=== PATIENT | female | born 1945 | race Caucasian/White ===

== ENCOUNTER 2020-11-10 10:08 | Outpatient (CLI) | payer MEDICARE, OTHER | END 2020-11-10 10:09 | disposition home or self-care (01) | LOC: CSHMAMMO 10:08 | PROVIDERS: ATTEND Family Medicine | DX: Z78.0 Asymptomatic menopausal state (principal); M85.80 Other specified disorders of bone density and structure, unspecified site | CPT/HCPCS: 77080 ==

== ENCOUNTER 2020-12-10 22:20 | Inpatient (IN) | payer MEDICARE, OTHER ==
[2020-12-10] MEDS ORDERED: Ventolin HFA Inhaler 60 PUFF INHALER ONE (23:14)
[2020-12-10 23:29] LABS: #Eosinphils 0.1 10x3/uL (0.0-0.5); #Monocytes 1.1 10x3/uL (0.0-1.1); #Neutrophils 8.5 10x3/uL (1.5-8.4); %Basophils 0.3 % (0.0-2.0); %Monocytes 8.9 % (0.0-10.0); %Neutrophils 71.5 % (40.0-75.0); Hemoglobin 11.2 g/dL (12.0-15.5); Mean Corpuscular HGB CONC 32.1 g/dL (32.0-36.0); Mean Corpuscular Hemoglobin 30.4 pg (27.0-33.0); Mean Corpuscular Volume 94.8 fl (81.6-98.3); Mean Platelet Volume 8.8 fl (7.4-10.4); Platelet Count 331 10x3/uL (150-450); RBC Distribution Width 15.9 % (11.5-14.5); Red Blood Cell (RBC) Count 3.68 10x6/uL (3.90-5.03); White Blood Cell (WBC) Count 11.9 10x3/uL (3.5-10.5)
[2020-12-10 23:45] LABS: ALT (SGPT) 13 U/L (8-55); AST (SGOT) 19 U/L (5-34); Albumin 3.6 g/dL (3.4-4.8); Alkaline Phosphatase 127 U/L (40-110); Anion Gap 14 mmol/L (10-20); BUN (Urea Nitrogen) 15 mg/dL (9.8-20.1); Bilirubin, Total 0.1 mg/dL (0.2-1.2); Calc. Creatinine Clearance 0 mL/min (70-130); Calcium 9.6 mg/dL (7.8-10.44); Carbon Dioxide 26 mmol/L (23-31); Chloride 106 mmol/L (98-107); Globulin 2.9 g/dL (2.4-3.5); Glucose 147 mg/dL (83-110); Potassium 4.3 mmol/L (3.5-5.1); Protein, Total 6.5 g/dL (5.8-8.1); Sodium 142 mmol/L (136-145)
[2020-12-11] MEDS ORDERED: Ventolin HFA Inhaler 60 PUFF INHALER INH PRN (03:46)
[2020-12-11 05:29] LABS: #Eosinphils 0.1 10x3/uL (0.0-0.5); #Monocytes 1.1 10x3/uL (0.0-1.1); #Neutrophils 6.4 10x3/uL (1.5-8.4); %Basophils 0.4 % (0.0-2.0); %Eosinophils 0.9 % (0.0-6.0); %Lymphocytes 22.1 % (18.0-47.0); %Monocytes 11.4 % (0.0-10.0); %Neutrophils 64.8 % (40.0-75.0); Mean Corpuscular Hemoglobin 30.6 pg (27.0-33.0); Mean Corpuscular Volume 95.8 fl (81.6-98.3); Mean Platelet Volume 9.1 fl (7.4-10.4); Platelet Count 309 10x3/uL (150-450); RBC Distribution Width 16.1 % (11.5-14.5); Red Blood Cell (RBC) Count 3.59 10x6/uL (3.90-5.03); White Blood Cell (WBC) Count 9.8 10x3/uL (3.5-10.5)
[2020-12-11 05:41] LABS: Anion Gap 13 mmol/L (10-20); BUN (Urea Nitrogen) 14 mg/dL (9.8-20.1); Calc. Creatinine Clearance 0 mL/min (70-130); Calcium 9.6 mg/dL (7.8-10.44); Carbon Dioxide 25 mmol/L (23-31); Chloride 108 mmol/L (98-107); Glucose 113 mg/dL (83-110); Magnesium 2.2 mg/dL (1.6-2.6); Potassium 4.1 mmol/L (3.5-5.1); Sodium 142 mmol/L (136-145)
[2020-12-11 05:46] LABS: Troponin I Less than 0.010 ng/mL (< 0.028)
[2020-12-11] MEDS: Levothyroxine Sodium 75 MCG TAB PO SCH (06:03)
[2020-12-11 06:19] LABS: SARS-CoV-2 NAA Rapid Test Not Detected (NotDetected)
[2020-12-11] MEDS ORDERED: Mometasone/Formoterol 60 PUFF AER INH SCH (06:30)
[2020-12-11] MEDS: Albuterol Sulfate 2.5 mg/3 ml Neb NEB SCH ×3 (07:35→19:05)
[2020-12-11] MEDS: Ipratropium Bromide 2.5 ml Neb NEB SCH ×3 (07:40→19:05)
[2020-12-11] MEDS ORDERED: Roflumilast [Daliresp] 500 MCG Tablet PO SCH (09:00)
[2020-12-11] MEDS: Cholecalciferol 1,000 UNITS (25 MCG) TAB PO SCH (10:25)
[2020-12-11] MEDS: Flecainide 50 MG TAB PO SCH ×2 (10:26→21:37)
[2020-12-11] MEDS: guaiFENesin ER 600 MG TAB PO SCH (10:27)
[2020-12-11] MEDS: Furosemide 20 MG TAB PO SCH (10:27)
[2020-12-11] MEDS: Losartan Potassium 50 MG TAB PO SCH ×2 (10:28→21:37)
[2020-12-11] MEDS: Magnesium Oxide 400 MG TAB PO SCH (10:30)
[2020-12-11] MEDS: sulfaSALAzine 500 MG TAB PO SCH ×2 (10:31→21:34)
[2020-12-11] MEDS: Metoprolol Tartrate 25 MG TAB PO SCH ×2 (10:33→21:37)
[2020-12-11] MEDS ORDERED: Metoprolol Tartrate 25 MG TAB ONE (10:34)
[2020-12-11 13:04] VITALS: BMI 31.9
[2020-12-11] MEDS: Mometasone 100 MCG/Formoterol 5 MCG 120 PUFF INHALER INH SCH (19:20)
[2020-12-11] MEDS ORDERED: diphenhydrAMINE 25 MG CAP PO SCH (21:00)
[2020-12-11] MEDS ORDERED: Rivaroxaban 10 MG TAB PO SCH (21:00)
[2020-12-11] MEDS: Atorvastatin Calcium 20 MG TAB PO SCH (21:35)
[2020-12-11] MEDS: Montelukast Sodium 10 mg Tablet PO SCH (21:37)
[2020-12-12] MEDS: Losartan Potassium 50 MG TAB PO SCH (05:05)
[2020-12-12 05:19] LABS: #Basophils 0.1 10x3/uL (0.0-0.2); #Eosinphils 0.2 10x3/uL (0.0-0.5); #Neutrophils 6.2 10x3/uL (1.5-8.4); %Basophils 0.5 % (0.0-2.0); %Eosinophils 2.2 % (0.0-6.0); %Lymphocytes 18.8 % (18.0-47.0); %Monocytes 10.6 % (0.0-10.0); %Neutrophils 67.7 % (40.0-75.0); Hemoglobin 10.9 g/dL (12.0-15.5); Mean Corpuscular HGB CONC 32.4 g/dL (32.0-36.0); Mean Corpuscular Hemoglobin 30.5 pg (27.0-33.0); Mean Corpuscular Volume 94.1 fl (81.6-98.3); Mean Platelet Volume 9.3 fl (7.4-10.4); Platelet Count 332 10x3/uL (150-450); RBC Distribution Width 16.1 % (11.5-14.5); Red Blood Cell (RBC) Count 3.57 10x6/uL (3.90-5.03); White Blood Cell (WBC) Count 9.2 10x3/uL (3.5-10.5)
[2020-12-12] MEDS: Levothyroxine Sodium 75 MCG TAB PO SCH (05:25)
[2020-12-12 05:28] LABS: Anion Gap 12 mmol/L (10-20); BUN (Urea Nitrogen) 14 mg/dL (9.8-20.1); Calc. Creatinine Clearance 74 mL/min (70-130); Calcium 9.2 mg/dL (7.8-10.44); Carbon Dioxide 26 mmol/L (23-31); Chloride 105 mmol/L (98-107); Glucose 95 mg/dL (83-110); Magnesium 2.1 mg/dL (1.6-2.6); Potassium 3.7 mmol/L (3.5-5.1); Sodium 139 mmol/L (136-145)
[2020-12-12] MEDS: Mometasone 100 MCG/Formoterol 5 MCG 120 PUFF INHALER INH SCH ×2 (07:10→19:00)
[2020-12-12] MEDS ORDERED: Rivaroxaban 10 MG TAB PO SCH (09:00)
[2020-12-12] MEDS: Cholecalciferol 1,000 UNITS (25 MCG) TAB PO SCH (09:27)
[2020-12-12] MEDS: Losartan 25 MG TAB PO SCH (09:27)
[2020-12-12] MEDS: guaiFENesin ER 600 MG TAB PO SCH (09:27)
[2020-12-12] MEDS: Flecainide 50 MG TAB PO SCH ×2 (09:27→22:23)
[2020-12-12] MEDS: Magnesium Oxide 400 MG TAB PO SCH (09:27)
[2020-12-12] MEDS: Metoprolol Tartrate 25 MG TAB PO SCH ×2 (09:28→22:23)
[2020-12-12] MEDS: Furosemide 20 MG TAB PO SCH ×2 (09:29→09:30)
[2020-12-12] MEDS: sulfaSALAzine 500 MG TAB PO SCH ×2 (09:50→22:24)
[2020-12-12] MEDS ORDERED: Potassium Chloride 20 MEQ TAB PO SCH (10:45)
[2020-12-12] MEDS: Atorvastatin Calcium 20 MG TAB PO SCH (22:23)
[2020-12-12] MEDS: Montelukast Sodium 10 mg Tablet PO SCH (22:23)
[2020-12-12] MEDS: diphenhydrAMINE 25 MG CAP PO SCH (22:23)
[2020-12-12] MEDS: Rivaroxaban 10 MG TAB PO SCH (22:24)
[2020-12-13 05:37] LABS: #Basophils 0.1 10x3/uL (0.0-0.2); #Eosinphils 0.2 10x3/uL (0.0-0.5); #Neutrophils 6.1 10x3/uL (1.5-8.4); %Basophils 0.5 % (0.0-2.0); %Eosinophils 2.3 % (0.0-6.0); %Lymphocytes 21.6 % (18.0-47.0); %Monocytes 10.6 % (0.0-10.0); %Neutrophils 64.7 % (40.0-75.0); Hemoglobin 11.1 g/dL (12.0-15.5); Mean Corpuscular HGB CONC 31.8 g/dL (32.0-36.0); Mean Corpuscular Hemoglobin 29.9 pg (27.0-33.0); Mean Corpuscular Volume 94.1 fl (81.6-98.3); Mean Platelet Volume 8.8 fl (7.4-10.4); Platelet Count 320 10x3/uL (150-450); RBC Distribution Width 16.2 % (11.5-14.5); Red Blood Cell (RBC) Count 3.71 10x6/uL (3.90-5.03); White Blood Cell (WBC) Count 9.4 10x3/uL (3.5-10.5)
[2020-12-13 05:54] LABS: Anion Gap 11 mmol/L (10-20); BUN (Urea Nitrogen) 15 mg/dL (9.8-20.1); Calc. Creatinine Clearance 70 mL/min (70-130); Calcium 9.2 mg/dL (7.8-10.44); Carbon Dioxide 26 mmol/L (23-31); Chloride 105 mmol/L (98-107); Glucose 93 mg/dL (83-110); Magnesium 2.1 mg/dL (1.6-2.6); Sodium 138 mmol/L (136-145)
[2020-12-13] MEDS: Levothyroxine Sodium 75 MCG TAB PO SCH (06:26)
[2020-12-13] MEDS: Mometasone 100 MCG/Formoterol 5 MCG 120 PUFF INHALER INH SCH (07:04)
[2020-12-13] MEDS: Cholecalciferol 1,000 UNITS (25 MCG) TAB PO SCH (08:21)
[2020-12-13] MEDS: sulfaSALAzine 500 MG TAB PO SCH ×2 (08:21→20:16)
[2020-12-13] MEDS: Magnesium Oxide 400 MG TAB PO SCH (08:21)
[2020-12-13] MEDS: Losartan 25 MG TAB PO SCH (08:21)
[2020-12-13] MEDS: Flecainide 50 MG TAB PO SCH ×2 (08:21→20:15)
[2020-12-13] MEDS: Metoprolol Tartrate 25 MG TAB PO SCH ×2 (08:21→20:15)
[2020-12-13] MEDS: guaiFENesin ER 600 MG TAB PO SCH (08:21)
[2020-12-13] MEDS: Furosemide 20 MG TAB PO SCH (08:21)
[2020-12-13] MEDS: Atorvastatin Calcium 20 MG TAB PO SCH (20:15)
[2020-12-13] MEDS: diphenhydrAMINE 25 MG CAP PO SCH (20:15)
[2020-12-13] MEDS: Montelukast Sodium 10 mg Tablet PO SCH (20:15)
[2020-12-13] MEDS: Rivaroxaban 10 MG TAB PO SCH (20:16)
[2020-12-14] MEDS: Mometasone 100 MCG/Formoterol 5 MCG 120 PUFF INHALER INH SCH ×2 (01:58→07:27)
[2020-12-14] MEDS: Levothyroxine Sodium 75 MCG TAB PO SCH (06:14)
[2020-12-14 07:03] VITALS: BP 116/70; TEMP 98
[2020-12-14] MEDS: Flecainide 50 MG TAB PO SCH (08:12)
[2020-12-14] MEDS: Furosemide 20 MG TAB PO SCH (08:12)
[2020-12-14] MEDS: sulfaSALAzine 500 MG TAB PO SCH (08:12)
[2020-12-14] MEDS: Metoprolol Tartrate 25 MG TAB PO SCH (08:13)
[2020-12-14] MEDS: Cholecalciferol 1,000 UNITS (25 MCG) TAB PO SCH (08:13)
[2020-12-14] MEDS: Magnesium Oxide 400 MG TAB PO SCH (08:13)
[2020-12-14] MEDS: guaiFENesin ER 600 MG TAB PO SCH (08:13)
[2020-12-14] MEDS ORDERED: Losartan 25 MG TAB PO SCH (09:00)
== END 2020-12-14 11:24 | disposition home or self-care (01) | DRG 309 ==
LOC: CSHERS 22:20 → CSHERHOLD 12-11 03:41 → UNDOADMOB 12-11 04:09 → INTOOBSV 12-11 04:09 → CSHTELE 12-11 12:33 → CSHERHOLD 12-11 12:33 → CSHTELE 12-11 12:33 → OBSVTOIN 12-13 08:00
PROVIDERS: ADMIT Family Medicine; ATTEND Internal Medicine
DX: I48.0 Paroxysmal atrial fibrillation (principal); I50.32 Chronic diastolic (congestive) heart failure; J45.909 Unspecified asthma, uncomplicated; Z20.822 Contact with and (suspected) exposure to COVID-19; E78.2 Mixed hyperlipidemia; L40.50 Arthropathic psoriasis, unspecified; I49.5 Sick sinus syndrome; I11.0 Hypertensive heart disease with heart failure; E03.9 Hypothyroidism, unspecified; D50.9 Iron deficiency anemia, unspecified; Z85.41 Personal history of malignant neoplasm of cervix uteri; Z79.01 Long term (current) use of anticoagulants; Z79.890 Hormone replacement therapy; Z79.899 Other long term (current) drug therapy; Z90.89 Acquired absence of other organs; Z95.0 Presence of cardiac pacemaker; Z90.49 Acquired absence of other specified parts of digestive tract; Z88.5 Allergy status to narcotic agent; Z88.0 Allergy status to penicillin; Z88.8 Allergy status to other drugs, medicaments and biological substances; Z90.710 Acquired absence of both cervix and uterus; Z82.3 Family history of stroke; Z80.1 Family history of malignant neoplasm of trachea, bronchus and lung; Z87.891 Personal history of nicotine dependence
CPT/HCPCS: 36415; 71045; 80048; 80053; 82728; 83540; 83735; 83880; 84443; 84484; 85025; 85379; 93005; 93306; 94640; 94664; 94760; G0378; J7611; J7620; Q0163; U0002

== ENCOUNTER 2021-05-19 07:47 | Day surgery (SDC) | payer MEDICARE, OTHER ==
[2021-05-19 08:14] VITALS: BMI 39.9
[2021-05-19] MEDS ORDERED: Acetaminophen 500 MG TAB ONE (08:46)
[2021-05-19] MEDS ORDERED: diphenhydrAMINE 25 MG CAP ONE (08:47)
[2021-05-19 15:22] LABS: #Basophils 0.1 10x3/uL (0.0-0.2); #Eosinphils 0.5 10x3/uL (0.0-0.5); #Monocytes 1.2 10x3/uL (0.0-1.1); #Neutrophils 5.5 10x3/uL (1.5-8.4); %Basophils 0.8 % (0.0-2.0); %Eosinophils 5.1 % (0.0-6.0); %Lymphocytes 23.7 % (18.0-47.0); %Monocytes 12.3 % (0.0-10.0); %Neutrophils 57.8 % (40.0-75.0); Hemoglobin 9.6 g/dL (12.0-15.5); Mean Corpuscular HGB CONC 30.7 g/dL (32.0-36.0); Mean Corpuscular Hemoglobin 26.4 pg (27.0-33.0); Mean Corpuscular Volume 86.2 fl (81.6-98.3); Mean Platelet Volume 8.8 fl (7.4-10.4); Platelet Count 366 10x3/uL (150-450); RBC Distribution Width 16.5 % (11.5-14.5); Red Blood Cell (RBC) Count 3.63 10x6/uL (3.90-5.03); White Blood Cell (WBC) Count 9.4 10x3/uL (3.5-10.5)
== END 2021-05-19 15:05 | disposition home or self-care (01) ==
LOC: CSHSDC/OP 07:47
PROVIDERS: ATTEND Internal Medicine Hematology & Oncology
DX: D64.9 Anemia, unspecified (principal); D69.59 Other secondary thrombocytopenia
CPT/HCPCS: 36430; 85025; 86850; 86900; 86901; 86920; P9016; 36415

== ENCOUNTER 2021-05-30 10:26 | Outpatient (CLI) | payer MEDICARE, OTHER ==
[2021-05-30 11:40] LABS: Hemoglobin 10.5 g/dL (12.0-15.5); Mean Corpuscular HGB CONC 31.3 g/dL (32.0-36.0); Mean Corpuscular Hemoglobin 27.9 pg (27.0-33.0); Mean Corpuscular Volume 89.1 fl (81.6-98.3); Mean Platelet Volume 9.6 fl (7.4-10.4); Platelet Count 374 10x3/uL (150-450); RBC Distribution Width 21.7 % (11.5-14.5); Red Blood Cell (RBC) Count 3.77 10x6/uL (3.90-5.03)
[2021-05-30 11:57] LABS: Anion Gap 14 mmol/L (10-20); BUN (Urea Nitrogen) 11 mg/dL (9.8-20.1); Calc. Creatinine Clearance 0 mL/min (70-130); Calcium 8.8 mg/dL (7.8-10.44); Carbon Dioxide 24 mmol/L (23-31); Chloride 108 mmol/L (98-107); Glucose 107 mg/dL (83-110); Potassium 3.7 mmol/L (3.5-5.1); Sodium 142 mmol/L (136-145)
[2021-05-30 21:58] LABS: SARS-CoV-2 PCR by NAA Not Detected (NotDetected)
== END 2021-05-30 10:27 | disposition home or self-care (01) ==
LOC: CSHLAB 10:26
PROVIDERS: ATTEND Internal Medicine Cardiovascular Disease
DX: Z01.812 Encounter for preprocedural laboratory examination (principal); Z20.822 Contact with and (suspected) exposure to COVID-19
CPT/HCPCS: 80048; 85027; U0003; U0005

== ENCOUNTER 2021-06-01 08:33 | Day surgery (SDC) | payer MEDICARE, OTHER ==
[2021-05-30 16:00] VITALS: BMI 37.0
[2021-06-01] MEDS ORDERED: Lidocaine 1% MPF 2 ML VIAL ONE (09:21)
[2021-06-01] MEDS ORDERED: Isosulfan Blue 50 MG/5 ML VIAL ONE (10:05)
[2021-06-01] MEDS ORDERED: Clindamycin/D5W 600 mg/50 ml Premix Bag ONE (10:05)
[2021-06-01] MEDS ORDERED: Lidocaine 1% PF 5 ML VIAL ONE (10:05)
[2021-06-01] MEDS ORDERED: EPINEPHrine 1 MG/ML AMP ONE (10:05)
[2021-06-01] MEDS ORDERED: Bupivacaine PF 0.5% 30 ML VIAL ONE (10:05)
[2021-06-01] MEDS ORDERED: traMADol HCl 50 MG TAB PO PRN (11:38)
[2021-06-01] MEDS ORDERED: Albuterol Sulfate 2.5 mg/3 ml Neb ONE (11:52)
== END 2021-06-01 12:45 | disposition home or self-care (01) ==
LOC: CSHSDC 08:33
PROVIDERS: ATTEND Surgery
PROC: 0HBU0ZZ Excision of Left Breast, Open Approach (ICD-10-PCS; principal; 2021-06-01)
PROC: 07B63ZX Excision of Left Axillary Lymphatic, Percutaneous Approach, Diagnostic (ICD-10-PCS; 2021-06-01)
DX: C50.212 Malignant neoplasm of upper-inner quadrant of left female breast (principal); C77.3 Secondary and unspecified malignant neoplasm of axilla and upper limb lymph nodes; I48.0 Paroxysmal atrial fibrillation; I10 Essential (primary) hypertension; J45.909 Unspecified asthma, uncomplicated; E78.00 Pure hypercholesterolemia, unspecified; K21.9 Gastro-esophageal reflux disease without esophagitis; Z17.0 Estrogen receptor positive status [ER+]; Z88.0 Allergy status to penicillin; Z88.5 Allergy status to narcotic agent; Z91.018 Allergy to other foods; Z79.01 Long term (current) use of anticoagulants; Z79.51 Long term (current) use of inhaled steroids; Z79.899 Other long term (current) drug therapy; Z95.0 Presence of cardiac pacemaker; Z85.41 Personal history of malignant neoplasm of cervix uteri; Z90.710 Acquired absence of both cervix and uterus
CPT/HCPCS: 19301; 38525; 38900; 76098; 78195; A9541; Q9968; 88307; 88342; J0171; J3490; J7611; S0020

== ENCOUNTER 2022-02-15 07:50 | Emergency (ER) | payer MEDICARE, OTHER ==
[2022-02-15 08:45] LABS: #Eosinphils 0.1 10x3/uL (0.0-0.5); #Monocytes 0.9 10x3/uL (0.0-1.1); #Neutrophils 7.5 10x3/uL (1.5-8.4); %Basophils 0.4 % (0.0-2.0); %Eosinophils 1.4 % (0.0-6.0); %Lymphocytes 14.1 % (18.0-47.0); %Monocytes 8.6 % (0.0-10.0); Hemoglobin 9.8 g/dL (12.0-15.5); Mean Corpuscular Hemoglobin 31.3 pg (27.0-33.0); Mean Corpuscular Volume 94.9 fl (81.6-98.3); Mean Platelet Volume 8.8 fl (7.4-10.4); Platelet Count 385 10x3/uL (150-450); RBC Distribution Width 16.6 % (11.5-14.5); Red Blood Cell (RBC) Count 3.13 10x6/uL (3.90-5.03); White Blood Cell (WBC) Count 10.1 10x3/uL (3.5-10.5)
[2022-02-15] MEDS ORDERED: Aspirin Chewable 81 MG TAB ONE (08:45)
[2022-02-15 09:02] LABS: ALT (SGPT) 9 U/L (8-55); AST (SGOT) 22 U/L (5-34); Albumin 3.4 g/dL (3.4-4.8); Alkaline Phosphatase 113 U/L (40-110); Anion Gap 14 mmol/L (10-20); BUN (Urea Nitrogen) 23 mg/dL (9.8-20.1); Bilirubin, Total 0.3 mg/dL (0.2-1.2); CK (CPK) 39 U/L (29-168); Calc. Creatinine Clearance 0 mL/min (70-130); Carbon Dioxide 23 mmol/L (23-31); Chloride 107 mmol/L (98-107); Estimated GFR 63; Glucose 96 mg/dL (83-110); Protein, Total 6.4 g/dL (5.8-8.1); Sodium 140 mmol/L (136-145)
[2022-02-15 10:51] LABS: Bilirubin Neg (Negative); Blood, Urine 50 (Negative); Clarity Cloudy (Clear); Glucose, Urine (Dipstick) Normal (Negative); Ketone, Urine Negative (Negative); Leukocyte 500 (Negative); Nitrite Negative (Negative); Protein, Urine (Dipstick) 30 mg/dl (Neg-Trace); Urobilinogen Normal mg/dL (Less than 2)
[2022-02-15 11:16] LABS: Bacteria/HPF 3+ HPF (None Seen); WBC/HPF Greater than 50 HPF (0-3)
[2022-02-15 11:17] LABS: Renal Epithelial 0-3 HPF (None Seen)
[2022-02-15 11:18] LABS: White Blood Cell Cast 0-3 LPF (None Seen)
== END 2022-02-15 11:45 | disposition home or self-care (01) ==
LOC: CSHERS 07:50
DX: N30.00 Acute cystitis without hematuria (principal); I10 Essential (primary) hypertension; E78.5 Hyperlipidemia, unspecified; Z79.899 Other long term (current) drug therapy; Z79.51 Long term (current) use of inhaled steroids
CPT/HCPCS: 71045; 80053; 81003; 81015; 82550; 84443; 84484; 85025; 93005

== ENCOUNTER 2022-02-24 04:12 | Inpatient (IN) | payer MEDICARE, OTHER ==
[2022-02-24] MEDS ORDERED: Lorazepam 2 MG/ML VIAL ONE (04:40)
[2022-02-24 04:46] LABS: Actual Bicarbonate (HCO3v) 26 mEq/L (22-28); Base Excess 1.2 mEq/L (-2.0 to +3.0); Calcium, Ionized (venous) 1.11 mmol/L (1.16-1.32); Chloride (VBG) 104 mmol/L (98-106); Potassium (VBG) 3.53 mmol/L (3.70-5.30); Puncture Site Other Site; Sodium 137.3 mmol/L (133-146); pH (venous) 7.44 (7.32-7.43)
[2022-02-24 04:51] LABS: #Eosinphils 0.2 10x3/uL (0.0-0.5); #Monocytes 0.8 10x3/uL (0.0-1.1); #Neutrophils 6.6 10x3/uL (1.5-8.4); %Basophils 0.4 % (0.0-2.0); %Eosinophils 1.9 % (0.0-6.0); %Lymphocytes 19.6 % (18.0-47.0); %Monocytes 8.4 % (0.0-10.0); %Neutrophils 69.3 % (40.0-75.0); Hemoglobin 8.3 g/dL (12.0-15.5); Mean Corpuscular HGB CONC 32.8 g/dL (32.0-36.0); Mean Corpuscular Hemoglobin 29.9 pg (27.0-33.0); Mean Platelet Volume 8.8 fl (7.4-10.4); Platelet Count 381 10x3/uL (150-450); RBC Distribution Width 17.1 % (11.5-14.5); Red Blood Cell (RBC) Count 2.78 10x6/uL (3.90-5.03); White Blood Cell (WBC) Count 9.6 10x3/uL (3.5-10.5)
[2022-02-24 05:00] LABS: ALT (SGPT) 11 U/L (8-55); AST (SGOT) 17 U/L (5-34); Albumin 3.5 g/dL (3.4-4.8); Alkaline Phosphatase 113 U/L (40-110); Anion Gap 15 mmol/L (10-20); BUN (Urea Nitrogen) 17 mg/dL (9.8-20.1); Bilirubin, Total 0.3 mg/dL (0.2-1.2); Calc. Creatinine Clearance 0 mL/min (70-130); Calcium 8.7 mg/dL (7.8-10.44); Carbon Dioxide 24 mmol/L (23-31); Chloride 106 mmol/L (98-107); Estimated GFR 54; Globulin 2.3 g/dL (2.4-3.5); Glucose 103 mg/dL (83-110); Potassium 3.8 mmol/L (3.5-5.1); Protein, Total 5.8 g/dL (5.8-8.1); Sodium 141 mmol/L (136-145)
[2022-02-24 05:20] LABS: SARS-CoV-2 NAA Rapid Test Not Detected (NotDetected)
[2022-02-24] MEDS ORDERED: Furosemide 40 MG/4 ML VIAL ONE (05:35)
[2022-02-24] MEDS ORDERED: Nitroglycerin 0.4 MG TAB (25 Tab Bottle) SL PRN (06:44)
[2022-02-24] MEDS ORDERED: Ventolin HFA Inhaler 60 PUFF INHALER INH PRN (07:09)
[2022-02-24 07:12] LABS: Magnesium 2.2 mg/dL (1.6-2.6)
[2022-02-24 08:24] LABS: Troponin I 0.011 ng/mL (< 0.028)
[2022-02-24 08:35] LABS: Bilirubin Neg (Negative); Blood, Urine Negative (Negative); Clarity Clear (Clear); Glucose, Urine (Dipstick) Normal (Negative); Ketone, Urine Negative (Negative); Leukocyte Negative (Negative); Nitrite Negative (Negative); Protein, Urine (Dipstick) Negative (Neg-Trace); Urobilinogen Normal mg/dL (Less than 2)
[2022-02-24 08:37] LABS: Urine Culture Reflex No No
[2022-02-24 09:00] LABS: RBC/HPF None Seen HPF (0-3)
[2022-02-24] MEDS ORDERED: Losartan Potassium 50 MG TAB PO SCH (09:00)
[2022-02-24] MEDS ORDERED: Rivaroxaban 10 MG TAB PO SCH (09:00)
[2022-02-24] MEDS ORDERED: Magnesium Oxide 400 MG TAB PO SCH (09:00)
[2022-02-24] MEDS ORDERED: ROFLUMILAST 500 MCG PO SCH (09:00)
[2022-02-24 09:01] VITALS: BMI 36.6
[2022-02-24] MEDS ORDERED: Metoprolol Tartrate 25 MG TAB ONE (10:04)
[2022-02-24] MEDS ORDERED: Losartan 25 MG TAB ONE (10:08)
[2022-02-24 11:46] LABS: Troponin I Less than 0.010 ng/mL (< 0.028)
[2022-02-24] MEDS: GUAIFENESIN SF SOLN 200 MG/10 ML UDCUP PO SCH (12:53)
[2022-02-24] MEDS: Flecainide 50 MG TAB PO SCH ×2 (12:53→21:16)
[2022-02-24] MEDS: Metoprolol Tartrate 25 MG TAB PO SCH ×2 (12:54→21:18)
[2022-02-24] MEDS: Ipratropium Bromide 2.5 ml Neb NEB SCH ×2 (13:00→18:55)
[2022-02-24] MEDS: Mometasone/Formoterol 60 PUFF AER INH SCH (19:00)
[2022-02-24] MEDS: Rivaroxaban 10 MG TAB PO SCH (21:17)
[2022-02-24] MEDS: Atorvastatin Calcium 20 MG TAB PO SCH (21:17)
[2022-02-24] MEDS: Montelukast Sodium 10 mg Tablet PO SCH (21:17)
[2022-02-24] MEDS: Letrozole 2.5 MG TAB PO SCH (21:18)
[2022-02-25] MEDS: Ipratropium Bromide 2.5 ml Neb NEB SCH ×4 (00:40→19:09)
[2022-02-25 04:59] LABS: #Eosinphils 0.1 10x3/uL (0.0-0.5); #Monocytes 0.8 10x3/uL (0.0-1.1); #Neutrophils 9.1 10x3/uL (1.5-8.4); %Basophils 0.4 % (0.0-2.0); %Eosinophils 1.3 % (0.0-6.0); %Lymphocytes 9.6 % (18.0-47.0); %Monocytes 7.2 % (0.0-10.0); %Neutrophils 81.1 % (40.0-75.0); Hemoglobin 8.2 g/dL (12.0-15.5); Mean Corpuscular HGB CONC 31.7 g/dL (32.0-36.0); Mean Corpuscular Hemoglobin 29.6 pg (27.0-33.0); Mean Corpuscular Volume 93.5 fl (81.6-98.3); Mean Platelet Volume 8.8 fl (7.4-10.4); Platelet Count 384 10x3/uL (150-450); RBC Distribution Width 16.7 % (11.5-14.5); Red Blood Cell (RBC) Count 2.77 10x6/uL (3.90-5.03); White Blood Cell (WBC) Count 11.2 10x3/uL (3.5-10.5)
[2022-02-25 05:09] LABS: ALT (SGPT) 9 U/L (8-55); AST (SGOT) 17 U/L (5-34); Albumin 3.3 g/dL (3.4-4.8); Alkaline Phosphatase 101 U/L (40-110); Anion Gap 16 mmol/L (10-20); BUN (Urea Nitrogen) 16 mg/dL (9.8-20.1); Bilirubin, Direct 0.2 mg/dL (0.1-0.3); Bilirubin, Total 0.4 mg/dL (0.2-1.2); Calc. Creatinine Clearance 61 mL/min (70-130); Calcium 8.7 mg/dL (7.8-10.44); Carbon Dioxide 21 mmol/L (23-31); Cardiac Risk 2.8 (Less than 4.5); Chloride 106 mmol/L (98-107); Cholesterol 128 mg/dl (< 200 Desired); Estimated GFR 55; Glucose 123 mg/dL (83-110); HDL Cholesterol 46 mg/dL (>60 Neg Risk); LDL Cholesterol, Calculated 66 mg/dL; Magnesium 2.2 mg/dL (1.6-2.6); Potassium 3.8 mmol/L (3.5-5.1); Protein, Total 5.8 g/dL (5.8-8.1); Sodium 139 mmol/L (136-145); Triglycerides 78 mg/dL (Less than 150)
[2022-02-25] MEDS: Levothyroxine Sodium 75 MCG TAB PO SCH (05:10)
[2022-02-25] MEDS: Mometasone/Formoterol 60 PUFF AER INH SCH ×2 (07:15→19:12)
[2022-02-25] MEDS: GUAIFENESIN SF SOLN 200 MG/10 ML UDCUP PO SCH (08:01)
[2022-02-25] MEDS: Metoprolol Tartrate 25 MG TAB PO SCH ×2 (08:01→20:39)
[2022-02-25] MEDS: Flecainide 50 MG TAB PO SCH ×2 (08:01→20:38)
[2022-02-25] MEDS ORDERED: Furosemide 20 MG/2 ML VIAL SLOW IVP SCH (19:00)
[2022-02-25] MEDS: Atorvastatin Calcium 20 MG TAB PO SCH (20:37)
[2022-02-25] MEDS: Rivaroxaban 10 MG TAB PO SCH (20:39)
[2022-02-25] MEDS: Montelukast Sodium 10 mg Tablet PO SCH (20:41)
[2022-02-25] MEDS: Letrozole 2.5 MG TAB PO SCH (20:41)
[2022-02-26] MEDS: Ipratropium Bromide 2.5 ml Neb NEB SCH ×4 (01:47→19:10)
[2022-02-26 05:03] LABS: Anion Gap 14 mmol/L (10-20); BUN (Urea Nitrogen) 18 mg/dL (9.8-20.1); Calc. Creatinine Clearance 70 mL/min (70-130); Carbon Dioxide 24 mmol/L (23-31); Chloride 105 mmol/L (98-107); Estimated GFR 64; Glucose 101 mg/dL (83-110); Potassium 3.6 mmol/L (3.5-5.1); Sodium 139 mmol/L (136-145)
[2022-02-26 05:15] LABS: #Eosinphils 0.2 10x3/uL (0.0-0.5); #Monocytes 0.9 10x3/uL (0.0-1.1); #Neutrophils 7.6 10x3/uL (1.5-8.4); %Basophils 0.3 % (0.0-2.0); %Eosinophils 1.9 % (0.0-6.0); %Lymphocytes 12.7 % (18.0-47.0); %Monocytes 9.3 % (0.0-10.0); %Neutrophils 75.4 % (40.0-75.0); Hemoglobin 9.4 g/dL (12.0-15.5); Mean Corpuscular HGB CONC 31.9 g/dL (32.0-36.0); Mean Corpuscular Hemoglobin 28.7 pg (27.0-33.0); Mean Corpuscular Volume 89.9 fl (81.6-98.3); Platelet Count 383 10x3/uL (150-450); RBC Distribution Width 16.9 % (11.5-14.5); Red Blood Cell (RBC) Count 3.28 10x6/uL (3.90-5.03); White Blood Cell (WBC) Count 10.1 10x3/uL (3.5-10.5)
[2022-02-26] MEDS: Levothyroxine Sodium 75 MCG TAB PO SCH (05:50)
[2022-02-26] MEDS: Mometasone/Formoterol 60 PUFF AER INH SCH ×2 (07:10→19:10)
[2022-02-26] MEDS ORDERED: Potassium Chloride 20 MEQ TAB PO SCH (09:30)
[2022-02-26] MEDS: Flecainide 50 MG TAB PO SCH ×2 (10:08→21:32)
[2022-02-26] MEDS: Metoprolol Tartrate 25 MG TAB PO SCH ×2 (10:08→21:32)
[2022-02-26] MEDS: GUAIFENESIN SF SOLN 200 MG/10 ML UDCUP PO SCH (10:08)
[2022-02-26] MEDS: Furosemide 40 MG TAB PO SCH (10:09)
[2022-02-26] MEDS: MAGNESIUM 200 MG PO SCH (11:00)
[2022-02-26] MEDS: Atorvastatin Calcium 20 MG TAB PO SCH (21:32)
[2022-02-26] MEDS: Letrozole 2.5 MG TAB PO SCH (21:32)
[2022-02-26] MEDS: Rivaroxaban 10 MG TAB PO SCH (21:32)
[2022-02-26] MEDS: Montelukast Sodium 10 mg Tablet PO SCH (21:33)
[2022-02-26 22:58] LABS: Bilirubin Neg (Negative); Blood, Urine Negative (Negative); Clarity Clear (Clear); Glucose, Urine (Dipstick) Normal (Negative); Ketone, Urine Negative (Negative); Leukocyte 500 (Negative); Nitrite Negative (Negative); Protein, Urine (Dipstick) Negative (Neg-Trace); Urobilinogen Normal mg/dL (Less than 2)
[2022-02-26 23:01] LABS: Urine Culture Reflex No No
[2022-02-26 23:08] LABS: RBC/HPF 0-3 HPF (0-3)
[2022-02-26 23:09] LABS: Bacteria/HPF Rare-Few HPF (None Seen); Squamous Epithelial 0-3 HPF (0-3)
[2022-02-27] MEDS: Ipratropium Bromide 2.5 ml Neb NEB SCH ×4 (01:10→20:30)
[2022-02-27] MEDS: Levothyroxine Sodium 75 MCG TAB PO SCH (05:21)
[2022-02-27 05:32] LABS: #Basophils 0.1 10x3/uL (0.0-0.2); #Eosinphils 0.3 10x3/uL (0.0-0.5); #Neutrophils 7.4 10x3/uL (1.5-8.4); %Basophils 0.6 % (0.0-2.0); %Eosinophils 2.6 % (0.0-6.0); %Lymphocytes 10.2 % (18.0-47.0); %Monocytes 10.6 % (0.0-10.0); %Neutrophils 75.8 % (40.0-75.0); Hemoglobin 9.5 g/dL (12.0-15.5); Mean Corpuscular HGB CONC 32.1 g/dL (32.0-36.0); Mean Corpuscular Hemoglobin 28.5 pg (27.0-33.0); Mean Corpuscular Volume 88.9 fl (81.6-98.3); Mean Platelet Volume 8.9 fl (7.4-10.4); Platelet Count 383 10x3/uL (150-450); Red Blood Cell (RBC) Count 3.33 10x6/uL (3.90-5.03); White Blood Cell (WBC) Count 9.8 10x3/uL (3.5-10.5)
[2022-02-27 05:37] LABS: Anion Gap 17 mmol/L (10-20); BUN (Urea Nitrogen) 19 mg/dL (9.8-20.1); Calc. Creatinine Clearance 62 mL/min (70-130); Calcium 8.7 mg/dL (7.8-10.44); Carbon Dioxide 22 mmol/L (23-31); Chloride 105 mmol/L (98-107); Estimated GFR 55; Glucose 94 mg/dL (83-110); Magnesium 1.9 mg/dL (1.6-2.6); Potassium 3.6 mmol/L (3.5-5.1); Sodium 140 mmol/L (136-145)
[2022-02-27] MEDS: Mometasone/Formoterol 60 PUFF AER INH SCH ×2 (06:50→20:30)
[2022-02-27] MEDS ORDERED: GUAIFENESIN SF SOLN 200 MG/10 ML UDCUP ONE (09:16)
[2022-02-27] MEDS ORDERED: Meropenem 1 GM in Sodium Chloride 0.9% 100 ML IVPB SCH (09:30)
[2022-02-27] MEDS: GUAIFENESIN SF SOLN 200 MG/10 ML UDCUP PO SCH (09:55)
[2022-02-27] MEDS: Flecainide 50 MG TAB PO SCH ×2 (09:56→21:11)
[2022-02-27] MEDS: Furosemide 40 MG TAB PO SCH (09:56)
[2022-02-27] MEDS: Metoprolol Tartrate 25 MG TAB PO SCH ×2 (09:56→21:11)
[2022-02-27] MEDS ORDERED: Potassium Chloride 10 MEQ in Premix Bag 1 BAG IVPB SCH (11:45)
[2022-02-27 12:58] LABS: Iron 26 ug/dL (50-170); Iron Binding Capacity, Total 348 mcg/dL (265-497)
[2022-02-27] MEDS ORDERED: Meropenem 1 GM VIAL ONE (17:12)
[2022-02-27] MEDS: Meropenem 1 GM in Sodium Chloride 0.9% 100 ML IVPB SCH (17:46)
[2022-02-27] MEDS: Montelukast Sodium 10 mg Tablet PO SCH (21:11)
[2022-02-27] MEDS: Letrozole 2.5 MG TAB PO SCH (21:11)
[2022-02-27] MEDS: Rivaroxaban 10 MG TAB PO SCH (21:11)
[2022-02-27] MEDS: Atorvastatin Calcium 20 MG TAB PO SCH (21:11)
[2022-02-28] MEDS: Ipratropium Bromide 2.5 ml Neb NEB SCH ×4 (01:44→20:00)
[2022-02-28] MEDS: Meropenem 1 GM in Sodium Chloride 0.9% 100 ML IVPB SCH ×4 (05:40→17:38)
[2022-02-28] MEDS: Levothyroxine Sodium 75 MCG TAB PO SCH (05:40)
[2022-02-28 06:39] LABS: Anion Gap 12 mmol/L (10-20); BUN (Urea Nitrogen) 16 mg/dL (9.8-20.1); Calc. Creatinine Clearance 74 mL/min (70-130); Calcium 8.9 mg/dL (7.8-10.44); Carbon Dioxide 25 mmol/L (23-31); Chloride 105 mmol/L (98-107); Estimated GFR 69; Glucose 89 mg/dL (83-110); Magnesium 1.9 mg/dL (1.6-2.6); Potassium 3.4 mmol/L (3.5-5.1); Sodium 139 mmol/L (136-145)
[2022-02-28 08:02] LABS: #Eosinphils 0.2 10x3/uL (0.0-0.5); #Monocytes 0.9 10x3/uL (0.0-1.1); #Neutrophils 6.3 10x3/uL (1.5-8.4); %Basophils 0.5 % (0.0-2.0); %Eosinophils 2.8 % (0.0-6.0); %Lymphocytes 13.6 % (18.0-47.0); %Monocytes 10.3 % (0.0-10.0); %Neutrophils 72.5 % (40.0-75.0); Hemoglobin 9.6 g/dL (12.0-15.5); Mean Corpuscular HGB CONC 32.2 g/dL (32.0-36.0); Mean Corpuscular Hemoglobin 28.2 pg (27.0-33.0); Mean Corpuscular Volume 87.6 fl (81.6-98.3); Mean Platelet Volume 8.8 fl (7.4-10.4); Platelet Count 405 10x3/uL (150-450); RBC Distribution Width 16.8 % (11.5-14.5); White Blood Cell (WBC) Count 8.7 10x3/uL (3.5-10.5)
[2022-02-28] MEDS: Furosemide 40 MG TAB PO SCH (08:25)
[2022-02-28] MEDS: Potassium Chloride 20 MEQ TAB PO SCH ×2 (08:25→17:08)
[2022-02-28] MEDS: Flecainide 50 MG TAB PO SCH ×2 (08:25→20:36)
[2022-02-28] MEDS: GUAIFENESIN SF SOLN 200 MG/10 ML UDCUP PO SCH (08:25)
[2022-02-28] MEDS: Metoprolol Tartrate 25 MG TAB PO SCH ×2 (08:25→20:36)
[2022-02-28] MEDS: Mometasone/Formoterol 60 PUFF AER INH SCH ×2 (08:40→20:00)
[2022-02-28] MEDS ORDERED: Magnesium 2 GM/50 ML(in water) 2 GM in Premix Bag 1 BAG IVPB SCH (09:00)
[2022-02-28] MEDS ORDERED: Iron, Sodium Ferric Gluconate 250 MG in Sodium Chloride 0.9% 250 ML 250 ML IVPB SCH (12:00)
[2022-02-28] MEDS: Spironolactone 25 MG TAB PO SCH (12:53)
[2022-02-28] MEDS: Atorvastatin Calcium 20 MG TAB PO SCH (20:39)
[2022-02-28] MEDS: Montelukast Sodium 10 mg Tablet PO SCH (20:40)
[2022-02-28] MEDS: Letrozole 2.5 MG TAB PO SCH (20:40)
[2022-02-28] MEDS: Rivaroxaban 10 MG TAB PO SCH (20:40)
[2022-03-01] MEDS: Meropenem 1 GM in Sodium Chloride 0.9% 100 ML IVPB SCH ×2 (00:51→08:25)
[2022-03-01] MEDS: Ipratropium Bromide 2.5 ml Neb NEB SCH ×2 (01:00→10:07)
[2022-03-01 04:52] LABS: #Basophils 0.1 10x3/uL (0.0-0.2); #Eosinphils 0.3 10x3/uL (0.0-0.5); #Monocytes 1.1 10x3/uL (0.0-1.1); #Neutrophils 7.2 10x3/uL (1.5-8.4); %Basophils 0.6 % (0.0-2.0); %Eosinophils 2.9 % (0.0-6.0); %Lymphocytes 11.9 % (18.0-47.0); %Monocytes 11.2 % (0.0-10.0); %Neutrophils 72.9 % (40.0-75.0); Hemoglobin 9.4 g/dL (12.0-15.5); Mean Corpuscular HGB CONC 31.1 g/dL (32.0-36.0); Mean Corpuscular Hemoglobin 28.1 pg (27.0-33.0); Mean Corpuscular Volume 90.4 fl (81.6-98.3); Mean Platelet Volume 8.6 fl (7.4-10.4); Platelet Count 391 10x3/uL (150-450); RBC Distribution Width 16.7 % (11.5-14.5); Red Blood Cell (RBC) Count 3.34 10x6/uL (3.90-5.03); White Blood Cell (WBC) Count 9.9 10x3/uL (3.5-10.5)
[2022-03-01 05:19] LABS: Anion Gap 14 mmol/L (10-20); BUN (Urea Nitrogen) 16 mg/dL (9.8-20.1); Calc. Creatinine Clearance 79 mL/min (70-130); Carbon Dioxide 23 mmol/L (23-31); Chloride 107 mmol/L (98-107); Estimated GFR 74; Glucose 93 mg/dL (83-110); Magnesium 2.2 mg/dL (1.6-2.6); Potassium 4.5 mmol/L (3.5-5.1); Sodium 139 mmol/L (136-145)
[2022-03-01] MEDS: Levothyroxine Sodium 75 MCG TAB PO SCH (06:52)
[2022-03-01] MEDS: Metoprolol Tartrate 25 MG TAB PO SCH (08:26)
[2022-03-01] MEDS: Flecainide 50 MG TAB PO SCH (08:26)
[2022-03-01] MEDS: GUAIFENESIN SF SOLN 200 MG/10 ML UDCUP PO SCH (08:26)
[2022-03-01] MEDS: Mometasone/Formoterol 60 PUFF AER INH SCH (10:07)
[2022-03-01 12:06] VITALS: BP 141/60; TEMP 97.3
[2022-03-01] MEDS: Spironolactone 25 MG TAB PO SCH (12:37)
== END 2022-03-01 12:54 | disposition home or self-care (01) | DRG 812 ==
LOC: CSHERS 04:12 → INTOOBSV 06:08 → CSHERHOLD 06:08 → OBSVTOIN 06:08 → UNDOADMIN 06:08 → CSHERHOLD 13:00 → CSHTELE 13:00 → CSHERHOLD 02-26 15:20
PROVIDERS: ADMIT Student in an Organized Health Care Education/Training Program; ATTEND Family Medicine
PROC: 30233N1 Transfusion of Nonautologous Red Blood Cells into Peripheral Vein, Percutaneous Approach (ICD-10-PCS; principal; 2022-02-25)
DX: D50.0 Iron deficiency anemia secondary to blood loss (chronic) (principal); K57.92 Diverticulitis of intestine, part unspecified, without perforation or abscess without bleeding; I50.32 Chronic diastolic (congestive) heart failure; I48.20 Chronic atrial fibrillation, unspecified; I48.0 Paroxysmal atrial fibrillation; E03.9 Hypothyroidism, unspecified; E78.2 Mixed hyperlipidemia; E87.6 Hypokalemia; I11.0 Hypertensive heart disease with heart failure; L40.50 Arthropathic psoriasis, unspecified; R30.0 Dysuria; J44.9 Chronic obstructive pulmonary disease, unspecified; Z20.822 Contact with and (suspected) exposure to COVID-19; E66.9 Obesity, unspecified; K21.9 Gastro-esophageal reflux disease without esophagitis; Z85.3 Personal history of malignant neoplasm of breast; Z92.3 Personal history of irradiation; Z92.21 Personal history of antineoplastic chemotherapy; Z95.0 Presence of cardiac pacemaker; Z88.0 Allergy status to penicillin; Z91.018 Allergy to other foods; Z88.8 Allergy status to other drugs, medicaments and biological substances; Z79.51 Long term (current) use of inhaled steroids; Z79.01 Long term (current) use of anticoagulants; Z79.890 Hormone replacement therapy; Z79.899 Other long term (current) drug therapy; Z86.718 Personal history of other venous thrombosis and embolism; Z85.41 Personal history of malignant neoplasm of cervix uteri; Z90.710 Acquired absence of both cervix and uterus; Z90.89 Acquired absence of other organs; Z90.49 Acquired absence of other specified parts of digestive tract; Z98.890 Other specified postprocedural states; Z87.891 Personal history of nicotine dependence; Z80.1 Family history of malignant neoplasm of trachea, bronchus and lung; Z80.8 Family history of malignant neoplasm of other organs or systems; Z82.3 Family history of stroke; Z68.37 Body mass index [BMI] 37.0-37.9, adult
CPT/HCPCS: 36415; 36430; 71045; 80048; 80053; 80061; 80076; 81001; 82533; 82728; 82805; 83036; 83540; 83550; 83735; 83880; 84443; 84484; 85025; 85046; 86850; 86900; 86901; 87086; 93005; 93010; 93306; 94640; 94664; 96374; 96375; 96376; G0378; J1940; J2060; J2185; J2916; J3475; J3480; J3490; J7050; P9016

== ENCOUNTER 2022-06-11 12:45 | Outpatient (CLI) | payer MEDICARE, OTHER | END 2022-06-11 12:46 | disposition home or self-care (01) | LOC: CSHMAMMO 12:45 | PROVIDERS: ATTEND Surgery | DX: Z08 Encounter for follow-up examination after completed treatment for malignant neoplasm (principal); Z85.3 Personal history of malignant neoplasm of breast | CPT/HCPCS: 77066; G0279 ==

== ENCOUNTER 2022-10-15 15:29 | Inpatient (IN) | payer MEDICARE, OTHER ==
[2022-10-15 16:51] LABS: ALT (SGPT) 14 U/L (8-55); Albumin 3.4 g/dL (3.4-4.8); Alkaline Phosphatase 123 U/L (40-110); Anion Gap 14 mmol/L (10-20); BUN (Urea Nitrogen) 19 mg/dL (9.8-20.1); Bilirubin, Total 0.2 mg/dL (0.2-1.2); Calc. Creatinine Clearance 0 mL/min (70-130); Calcium 8.7 mg/dL (7.8-10.44); Carbon Dioxide 19 mmol/L (23-31); Chloride 109 mmol/L (98-107); Estimated GFR 64; Globulin 2.9 g/dL (2.4-3.5); Glucose 90 mg/dL (83-110); Potassium 5.4 mmol/L (3.5-5.1); Protein, Total 6.3 g/dL (5.8-8.1); Sodium 137 mmol/L (136-145)
[2022-10-15 16:59] LABS: #Eosinphils 0.2 10x3/uL (0.0-0.5); #Monocytes 0.8 10x3/uL (0.0-1.1); #Neutrophils 6.5 10x3/uL (1.5-8.4); %Basophils 0.4 % (0.0-2.0); %Lymphocytes 15.8 % (18.0-47.0); %Monocytes 8.6 % (0.0-10.0); %Neutrophils 72.9 % (40.0-75.0); Hemoglobin 7.6 g/dL (12.0-15.5); Mean Corpuscular HGB CONC 29.5 g/dL (32.0-36.0); Mean Corpuscular Hemoglobin 26.5 pg (27.0-33.0); Mean Corpuscular Volume 89.9 fl (81.6-98.3); Mean Platelet Volume 9.1 fl (7.4-10.4); Platelet Count 467 10x3/uL (150-450); RBC Distribution Width 18.4 % (11.5-14.5); Red Blood Cell (RBC) Count 2.87 10x6/uL (3.90-5.03)
[2022-10-15 17:04] LABS: Hypochromia MODERATE=16-30 cells (100X) (0-5/hpf); Polychromasia SLIGHT = 2-3 cells (100X) (0-2/hpf)
[2022-10-15 17:05] LABS: Platelet Morphology Comment Appears Increased
[2022-10-15 17:12] LABS: AST (SGOT) 38 U/L (5-34)
[2022-10-15] MEDS ORDERED: Furosemide 40 MG/4 ML VIAL ONE (17:22)
[2022-10-15] MEDS ORDERED: Guaifenesin DM 100-10/5 ML UDCUP PO PRN (17:44)
[2022-10-15] MEDS ORDERED: Senokot S 8.6-50 MG TAB PO PRN (17:44)
[2022-10-15 19:24] VITALS: BMI 37.0
[2022-10-15] MEDS ORDERED: Ventolin HFA Inhaler 60 PUFF INHALER INH PRN (19:32)
[2022-10-15] MEDS ORDERED: ALPRAZolam 0.25 MG TAB PO PRN (19:35)
[2022-10-15] MEDS ORDERED: Metoprolol Tartrate 25 MG TAB ONE (20:40)
[2022-10-15] MEDS: Atorvastatin Calcium 20 MG TAB PO SCH (20:54)
[2022-10-15] MEDS: Flecainide 50 MG TAB PO SCH (20:54)
[2022-10-15] MEDS: Montelukast Sodium 10 mg Tablet PO SCH (20:54)
[2022-10-15] MEDS: Metoprolol Tartrate 25 MG TAB PO SCH (20:54)
[2022-10-15] MEDS: Letrozole 2.5 MG TAB PO SCH (22:30)
[2022-10-15 22:38] LABS: Anion Gap 16 mmol/L (10-20); Calc. Creatinine Clearance 68 mL/min (70-130); Calcium 8.9 mg/dL (7.8-10.44); Carbon Dioxide 21 mmol/L (23-31); Chloride 107 mmol/L (98-107); Estimated GFR 63; Glucose 133 mg/dL (83-110); Potassium 3.8 mmol/L (3.5-5.1); Sodium 140 mmol/L (136-145)
[2022-10-15 22:39] LABS: BUN (Urea Nitrogen) 20 mg/dL (9.8-20.1)
[2022-10-16 03:20] LABS: #Eosinphils 0.2 10x3/uL (0.0-0.5); #Monocytes 0.8 10x3/uL (0.0-1.1); #Neutrophils 6.6 10x3/uL (1.5-8.4); %Basophils 0.4 % (0.0-2.0); %Eosinophils 2.2 % (0.0-6.0); %Monocytes 9.1 % (0.0-10.0); %Neutrophils 71.9 % (40.0-75.0); Hemoglobin 6.9 g/dL (12.0-15.5); Mean Corpuscular HGB CONC 30.3 g/dL (32.0-36.0); Mean Corpuscular Hemoglobin 26.7 pg (27.0-33.0); Mean Corpuscular Volume 88.4 fl (81.6-98.3); Mean Platelet Volume 8.9 fl (7.4-10.4); Platelet Count 407 10x3/uL (150-450); RBC Distribution Width 18.6 % (11.5-14.5); Red Blood Cell (RBC) Count 2.58 10x6/uL (3.90-5.03); White Blood Cell (WBC) Count 9.2 10x3/uL (3.5-10.5)
[2022-10-16 03:36] LABS: ALT (SGPT) 12 U/L (8-55); AST (SGOT) 19 U/L (5-34); Albumin 3.1 g/dL (3.4-4.8); Alkaline Phosphatase 106 U/L (40-110); Anion Gap 12 mmol/L (10-20); BUN (Urea Nitrogen) 18 mg/dL (9.8-20.1); Bilirubin, Total 0.2 mg/dL (0.2-1.2); Calc. Creatinine Clearance 70 mL/min (70-130); Calcium 8.6 mg/dL (7.8-10.44); Carbon Dioxide 24 mmol/L (23-31); Chloride 108 mmol/L (98-107); Estimated GFR 64; Globulin 2.5 g/dL (2.4-3.5); Glucose 88 mg/dL (83-110); Magnesium 2.1 mg/dL (1.6-2.6); Potassium 3.9 mmol/L (3.5-5.1); Protein, Total 5.6 g/dL (5.8-8.1); Sodium 140 mmol/L (136-145)
[2022-10-16] MEDS ORDERED: Furosemide 40 MG/4 ML VIAL ONE (06:00)
[2022-10-16] MEDS: Levothyroxine Sodium 75 MCG TAB PO SCH (06:03)
[2022-10-16] MEDS: Furosemide 20 MG/2 ML VIAL SLOW IVP SCH ×2 (06:03→16:01)
[2022-10-16] MEDS: Mometasone/Formoterol 60 PUFF AER INH SCH ×2 (08:05→19:35)
[2022-10-16] MEDS ORDERED: Metoprolol Tartrate 25 MG TAB ONE (09:10)
[2022-10-16] MEDS: Metoprolol Tartrate 25 MG TAB PO SCH ×2 (09:12→21:42)
[2022-10-16] MEDS: Flecainide 50 MG TAB PO SCH ×2 (09:15→21:43)
[2022-10-16] MEDS: guaiFENesin 100 MG/5 ML UDCUP PO SCH (09:15)
[2022-10-16] MEDS ORDERED: Mometasone/Formoterol 60 PUFF AER INH SCH (09:30)
[2022-10-16 16:14] LABS: Hemoglobin 8.3 g/dL (12.0-15.5)
[2022-10-16] MEDS: Atorvastatin Calcium 20 MG TAB PO SCH (21:42)
[2022-10-16] MEDS: Montelukast Sodium 10 mg Tablet PO SCH (21:43)
[2022-10-16] MEDS: Letrozole 2.5 MG TAB PO SCH (22:05)
[2022-10-17 04:41] LABS: #Basophils 0.1 10x3/uL (0.0-0.2); #Eosinphils 0.2 10x3/uL (0.0-0.5); #Neutrophils 6.5 10x3/uL (1.5-8.4); %Basophils 0.7 % (0.0-2.0); %Eosinophils 2.2 % (0.0-6.0); %Lymphocytes 14.5 % (18.0-47.0); %Neutrophils 71.3 % (40.0-75.0); Hemoglobin 8.4 g/dL (12.0-15.5); Mean Corpuscular HGB CONC 31.3 g/dL (32.0-36.0); Mean Corpuscular Hemoglobin 26.4 pg (27.0-33.0); Mean Corpuscular Volume 84.3 fl (81.6-98.3); Mean Platelet Volume 9.2 fl (7.4-10.4); Platelet Count 436 10x3/uL (150-450); RBC Distribution Width 18.7 % (11.5-14.5); Red Blood Cell (RBC) Count 3.18 10x6/uL (3.90-5.03); White Blood Cell (WBC) Count 9.1 10x3/uL (3.5-10.5)
[2022-10-17 04:43] LABS: Anion Gap 13 mmol/L (10-20); BUN (Urea Nitrogen) 22 mg/dL (9.8-20.1); Calc. Creatinine Clearance 65 mL/min (70-130); Calcium 8.9 mg/dL (7.8-10.44); Carbon Dioxide 23 mmol/L (23-31); Chloride 105 mmol/L (98-107); Estimated GFR 59; Glucose 96 mg/dL (83-110); Potassium 3.4 mmol/L (3.5-5.1); Sodium 138 mmol/L (136-145)
[2022-10-17] MEDS: Furosemide 20 MG/2 ML VIAL SLOW IVP SCH ×2 (06:11→14:10)
[2022-10-17] MEDS: Acetaminophen 325 MG TAB PO PRN ×2 (06:11→21:07)
[2022-10-17] MEDS: Levothyroxine Sodium 75 MCG TAB PO SCH (06:11)
[2022-10-17] MEDS: Mometasone/Formoterol 60 PUFF AER INH SCH ×2 (07:31→21:29)
[2022-10-17] MEDS: Flecainide 50 MG TAB PO SCH ×2 (09:42→20:57)
[2022-10-17] MEDS: Metoprolol Tartrate 25 MG TAB PO SCH ×2 (09:43→20:57)
[2022-10-17] MEDS: guaiFENesin 100 MG/5 ML UDCUP PO SCH (09:43)
[2022-10-17] MEDS ORDERED: Potassium Chloride 20 MEQ TAB PO SCH (09:45)
[2022-10-17] MEDS: Ondansetron PF 4 MG/2 ML Vial IVP PRN ×2 (10:02→20:51)
[2022-10-17 11:33] LABS: Bilirubin Neg (Negative); Blood, Urine Negative (Negative); Clarity Clear (Clear); Glucose, Urine (Dipstick) Normal (Negative); Ketone, Urine Negative (Negative); Leukocyte 100 (Negative); Nitrite Negative (Negative); Protein, Urine (Dipstick) Negative (Neg-Trace); Urobilinogen Normal mg/dL (Less than 2)
[2022-10-17 11:58] LABS: RBC/HPF 0-3 HPF (0-3)
[2022-10-17 11:59] LABS: Bacteria/HPF Rare-Few HPF (None Seen); CAUTI Indications for Culture Fever or rigors; Squamous Epithelial 0-3 HPF (0-3)
[2022-10-17 12:00] LABS: Urine Culture Reflex No No
[2022-10-17] MEDS: Atorvastatin Calcium 20 MG TAB PO SCH (20:55)
[2022-10-17] MEDS: Montelukast Sodium 10 mg Tablet PO SCH (20:55)
[2022-10-17] MEDS: Letrozole 2.5 MG TAB PO SCH (20:56)
[2022-10-18 05:53] LABS: #Basophils 0.1 10x3/uL (0.0-0.2); #Eosinphils 0.2 10x3/uL (0.0-0.5); #Neutrophils 4.6 10x3/uL (1.5-8.4); %Basophils 0.8 % (0.0-2.0); %Eosinophils 3.1 % (0.0-6.0); %Lymphocytes 18.8 % (18.0-47.0); %Monocytes 13.3 % (0.0-10.0); %Neutrophils 63.7 % (40.0-75.0); Hemoglobin 8.3 g/dL (12.0-15.5); Mean Corpuscular HGB CONC 31.3 g/dL (32.0-36.0); Mean Corpuscular Hemoglobin 26.5 pg (27.0-33.0); Mean Corpuscular Volume 84.7 fl (81.6-98.3); Mean Platelet Volume 8.5 fl (7.4-10.4); Platelet Count 379 10x3/uL (150-450); RBC Distribution Width 18.6 % (11.5-14.5); Red Blood Cell (RBC) Count 3.13 10x6/uL (3.90-5.03); White Blood Cell (WBC) Count 7.2 10x3/uL (3.5-10.5)
[2022-10-18 06:02] LABS: Anion Gap 14 mmol/L (10-20); BUN (Urea Nitrogen) 26 mg/dL (9.8-20.1); Calc. Creatinine Clearance 65 mL/min (70-130); Calcium 8.8 mg/dL (7.8-10.44); Carbon Dioxide 22 mmol/L (23-31); Chloride 108 mmol/L (98-107); Estimated GFR 59; Glucose 89 mg/dL (83-110); Potassium 3.8 mmol/L (3.5-5.1); Sodium 140 mmol/L (136-145)
[2022-10-18 06:36] LABS: SARS-CoV-2 NAA Rapid Test Not Detected (NotDetected)
[2022-10-18] MEDS: Furosemide 20 MG/2 ML VIAL SLOW IVP SCH ×2 (06:52→15:31)
[2022-10-18] MEDS: Levothyroxine Sodium 75 MCG TAB PO SCH (06:52)
[2022-10-18] MEDS: Mometasone/Formoterol 60 PUFF AER INH SCH ×2 (07:21)
[2022-10-18] MEDS: Metoprolol Tartrate 25 MG TAB PO SCH ×2 (10:22→21:26)
[2022-10-18] MEDS: Flecainide 50 MG TAB PO SCH ×2 (10:22→21:25)
[2022-10-18] MEDS: guaiFENesin 100 MG/5 ML UDCUP PO SCH (10:23)
[2022-10-18] MEDS: ROFLUMILAST 500 MCG PO SCH (10:24)
[2022-10-18] MEDS: Ondansetron PF 4 MG/2 ML Vial IVP PRN (10:34)
[2022-10-18] MEDS ORDERED: Iron Sucrose Complex 200 MG in Sodium Chloride 0.9% 100 ML IVPB SCH (17:15)
[2022-10-18] MEDS ORDERED: Iron, Sodium Ferric Gluconate 250 MG in Sodium Chloride 0.9% 250 ML 250 ML IVPB SCH (18:30)
[2022-10-18] MEDS: Montelukast Sodium 10 mg Tablet PO SCH (21:25)
[2022-10-18] MEDS: Atorvastatin Calcium 20 MG TAB PO SCH (21:26)
[2022-10-18] MEDS: Letrozole 2.5 MG TAB PO SCH (21:26)
[2022-10-19] MEDS: Levothyroxine Sodium 75 MCG TAB PO SCH (06:05)
[2022-10-19] MEDS: Furosemide 20 MG/2 ML VIAL SLOW IVP SCH ×2 (06:06→14:45)
[2022-10-19] MEDS: Mometasone/Formoterol 60 PUFF AER INH SCH ×2 (07:08→07:50)
[2022-10-19] MEDS ORDERED: guaiFENesin 100 MG/5 ML UDCUP ONE (08:22)
[2022-10-19] MEDS: Metoprolol Tartrate 25 MG TAB PO SCH (08:33)
[2022-10-19] MEDS: Flecainide 50 MG TAB PO SCH (08:33)
[2022-10-19] MEDS: guaiFENesin 100 MG/5 ML UDCUP PO SCH (08:35)
[2022-10-19 14:50] VITALS: BP 132/79; TEMP 97.9
[2022-10-19] MEDS ORDERED: FLU VACC QS2022-23(65YR UP)/PF 240 MCG/0.7 ML SYRINGE IM ONE (16:00)
== END 2022-10-19 14:00 | disposition home or self-care (01) | DRG 811 ==
LOC: CSHERS 15:29 → CSHERHOLD 18:11 → CSHTELE 10-16 14:34
PROVIDERS: ADMIT Student in an Organized Health Care Education/Training Program; ATTEND Hospitalist
PROC: 30233N1 Transfusion of Nonautologous Red Blood Cells into Peripheral Vein, Percutaneous Approach (ICD-10-PCS; principal; 2022-10-16)
DX: D62 Acute posthemorrhagic anemia (principal); I50.33 Acute on chronic diastolic (congestive) heart failure; I48.92 Unspecified atrial flutter; I48.0 Paroxysmal atrial fibrillation; C50.912 Malignant neoplasm of unspecified site of left female breast; J44.9 Chronic obstructive pulmonary disease, unspecified; Z20.822 Contact with and (suspected) exposure to COVID-19; K21.9 Gastro-esophageal reflux disease without esophagitis; E03.9 Hypothyroidism, unspecified; I11.0 Hypertensive heart disease with heart failure; E66.01 Morbid (severe) obesity due to excess calories; E78.2 Mixed hyperlipidemia; K31.7 Polyp of stomach and duodenum; E87.6 Hypokalemia; L40.50 Arthropathic psoriasis, unspecified; D50.0 Iron deficiency anemia secondary to blood loss (chronic); Z60.2 Problems related to living alone; I44.7 Left bundle-branch block, unspecified; Z88.6 Allergy status to analgesic agent; Z88.0 Allergy status to penicillin; Z79.01 Long term (current) use of anticoagulants; Z91.018 Allergy to other foods; Z79.899 Other long term (current) drug therapy; Z79.890 Hormone replacement therapy; Z86.718 Personal history of other venous thrombosis and embolism; Z95.0 Presence of cardiac pacemaker; Z85.41 Personal history of malignant neoplasm of cervix uteri; Z90.89 Acquired absence of other organs; Z90.49 Acquired absence of other specified parts of digestive tract; Z90.710 Acquired absence of both cervix and uterus; Z82.3 Family history of stroke; Z80.1 Family history of malignant neoplasm of trachea, bronchus and lung; Z87.891 Personal history of nicotine dependence; Z87.01 Personal history of pneumonia (recurrent); Z68.37 Body mass index [BMI] 37.0-37.9, adult
CPT/HCPCS: 36415; 36430; 71045; 80048; 80053; 81001; 83540; 83735; 83880; 84443; 84484; 85025; 86850; 86900; 86901; 93005; 94664; 94760; 96374; J1940; J2405; J2916; J7050; P9016; U0002

== ENCOUNTER 2023-08-20 18:59 | Emergency (ER) | payer MEDICARE, OTHER ==
[2023-08-20 21:00] LABS: ALT (SGPT) 14 U/L (8-55); AST (SGOT) 22 U/L (5-34); Albumin 3.7 g/dL (3.4-4.8); Alkaline Phosphatase 118 U/L (40-110); Anion Gap 15 mmol/L (10-20); BUN (Urea Nitrogen) 23 mg/dL (9.8-20.1); Bilirubin, Total 0.2 mg/dL (0.2-1.2); Calc. Creatinine Clearance 0 mL/min (70-130); Calcium 9.5 mg/dL (7.8-10.44); Carbon Dioxide 25 mmol/L (23-31); Chloride 103 mmol/L (98-107); Estimated GFR 56; Globulin 3.2 g/dL (2.4-3.5); Glucose 108 mg/dL (83-110); Potassium 3.1 mmol/L (3.5-5.1); Protein, Total 6.9 g/dL (5.8-8.1); Sodium 140 mmol/L (136-145)
[2023-08-20 21:32] LABS: Bilirubin Neg (Negative); Blood, Urine 10 (Negative); Glucose, Urine (Dipstick) Normal (Negative); Ketone, Urine Negative (Negative); Leukocyte 500 (Negative); Nitrite Negative (Negative); Protein, Urine (Dipstick) 15 mg/dl (Neg-Trace); Urobilinogen Normal mg/dL (Less than 2)
[2023-08-20 21:43] LABS: Clarity Clear (Clear)
[2023-08-20 21:46] LABS: Bacteria/HPF 1+ HPF (None Seen); CAUTI Indications for Culture Alt mental st,lethar; RBC/HPF 0-3 HPF (0-3); Renal Epithelial 0-3 HPF (None Seen); Squamous Epithelial 0-3 HPF (0-3); WBC/HPF 21-50 HPF (0-3)
[2023-08-20 21:48] LABS: Urine Culture Reflex Yes Yes
[2023-08-20 21:58] LABS: #Basophils 0.1 10x3/uL (0.0-0.2); #Eosinphils 0.2 10x3/uL (0.0-0.5); #Monocytes 1.1 10x3/uL (0.0-1.1); #Neutrophils 7.3 10x3/uL (1.5-8.4); %Basophils 0.8 % (0.0-2.0); %Eosinophils 1.7 % (0.0-6.0); %Monocytes 10.6 % (0.0-10.0); %Neutrophils 69.6 % (40.0-75.0); Hematocrit 31.8 % (34.9-44.5); Hemoglobin 10.4 g/dL (12.0-15.5); Mean Corpuscular HGB CONC 32.7 g/dL (32.0-36.0); Mean Corpuscular Hemoglobin 29.5 pg (27.0-33.0); Mean Corpuscular Volume 90.3 fl (81.6-98.3); Mean Platelet Volume 8.8 fl (7.4-10.4); Platelet Count 424 10x3/uL (150-450); RBC Distribution Width 15.4 % (11.5-14.5); Red Blood Cell (RBC) Count 3.52 10x6/uL (3.90-5.03); White Blood Cell (WBC) Count 10.5 10x3/uL (3.5-10.5)
== END 2023-08-20 23:48 | disposition home or self-care (01) ==
LOC: CSHERS 18:59
DX: R20.2 Paresthesia of skin (principal); N39.0 Urinary tract infection, site not specified; I10 Essential (primary) hypertension; E78.5 Hyperlipidemia, unspecified; I48.91 Unspecified atrial fibrillation; J45.909 Unspecified asthma, uncomplicated; D64.9 Anemia, unspecified; Z79.01 Long term (current) use of anticoagulants; Z79.899 Other long term (current) drug therapy; Z95.0 Presence of cardiac pacemaker
CPT/HCPCS: 36415; 80053; 81001; 85025; 87086; 93005

== ENCOUNTER 2024-01-31 13:56 | Outpatient (CLI) | payer MEDICARE, OTHER ==
[2024-01-31 15:06] LABS: Hematocrit 35.5 % (34.9-44.5); Hemoglobin 11.6 g/dL (12.0-15.5); Mean Corpuscular HGB CONC 32.7 g/dL (32.0-36.0); Mean Corpuscular Hemoglobin 32.1 pg (27.0-33.0); Mean Corpuscular Volume 98.3 fL (81.6-98.3); Mean Platelet Volume 9.2 fL (7.4-10.4); Platelet Count 370 10x3/uL (150-450); RBC Distribution Width 20.9 % (11.5-14.5); Red Blood Cell (RBC) Count 3.61 10x6/uL (3.90-5.03); White Blood Cell (WBC) Count 8.7 10x3/uL (3.5-10.5)
[2024-01-31 15:23] LABS: Anion Gap 13 mmol/L (10-20); BUN (Urea Nitrogen) 21 mg/dL (9.8-20.1); Calc. Creatinine Clearance 0 mL/min (70-130); Calcium 9.1 mg/dL (7.8-10.44); Carbon Dioxide 27 mmol/L (23-31); Chloride 104 mmol/L (98-107); Estimated GFR 45; Glucose 94 mg/dL (83-110); Potassium 3.9 mmol/L (3.5-5.1); Sodium 140 mmol/L (136-145)
== END 2024-01-31 13:57 | disposition home or self-care (01) ==
LOC: CSHLAB 13:56
PROVIDERS: ATTEND Surgery
DX: Z01.818 Encounter for other preprocedural examination (principal); D50.9 Iron deficiency anemia, unspecified
CPT/HCPCS: 80048; 85027; 93005; 93010

== ENCOUNTER 2024-02-03 05:43 | Day surgery (SDC) | payer MEDICARE, OTHER ==
[2024-01-29 13:56] VITALS: BMI 37.0
[2024-02-03] MEDS ORDERED: CEFAZOLIN 2 GM VIAL ONE (06:15)
[2024-02-03] MEDS ORDERED: EPINEPHrine 1 MG/ML VIAL ONE (06:15)
[2024-02-03] MEDS ORDERED: Bupivacaine PF 0.5% 30 ML VIAL ONE (06:15)
[2024-02-03] MEDS ORDERED: Clindamycin/D5W 600 mg/50 ml Premix Bag ONE (06:47)
[2024-02-03] MEDS ORDERED: PROPOFOL 20 ML ONE (07:11)
[2024-02-03] MEDS ORDERED: fentaNYL 50 mcg/mL 1 mL Vial ONE (07:11)
[2024-02-03] MEDS ORDERED: Ondansetron PF 4 MG/2 ML Vial ONE (07:38)
[2024-02-03] MEDS ORDERED: Lidocaine 1% PF 5 ML VIAL ONE (07:48)
== END 2024-02-03 08:50 | disposition home or self-care (01) ==
LOC: CSHSDC 05:43
PROVIDERS: ATTEND Surgery
PROC: 0JH60WZ Insertion of Totally Implantable Vascular Access Device into Chest Subcutaneous Tissue and Fascia, Open Approach (ICD-10-PCS; principal; 2024-02-03)
DX: D50.9 Iron deficiency anemia, unspecified (principal); C50.912 Malignant neoplasm of unspecified site of left female breast; I48.0 Paroxysmal atrial fibrillation; J44.9 Chronic obstructive pulmonary disease, unspecified; I10 Essential (primary) hypertension; E03.9 Hypothyroidism, unspecified; I49.5 Sick sinus syndrome; Z79.01 Long term (current) use of anticoagulants; Z79.890 Hormone replacement therapy; Z88.0 Allergy status to penicillin; Z79.899 Other long term (current) drug therapy; Z88.8 Allergy status to other drugs, medicaments and biological substances; Z91.018 Allergy to other foods; Z86.718 Personal history of other venous thrombosis and embolism; Z79.51 Long term (current) use of inhaled steroids
CPT/HCPCS: 36561; 71045; J0171; J0665; J1642; J2405; J2704; J3010; J3490; C1788

== ENCOUNTER 2024-03-20 10:31 | Outpatient (CLI) | payer MEDICARE, OTHER | END 2024-03-20 10:32 | disposition home or self-care (01) | LOC: CSHMAMMO 10:31 | PROVIDERS: ATTEND Internal Medicine Hematology & Oncology | DX: M85.851 Other specified disorders of bone density and structure, right thigh (principal); M85.852 Other specified disorders of bone density and structure, left thigh | CPT/HCPCS: 77080 ==

== ENCOUNTER 2024-05-12 09:43 | Inpatient (IN) | payer MEDICARE, OTHER ==
[2024-05-12] MEDS ORDERED: Iopamidol 370 76% 100 ML VIAL ONE (09:53)
[2024-05-12 10:45] LABS: #Basophils 0.05 10x3/uL (0.0-0.2); #Eosinophils 0.18 10x3/uL (0.0-0.5); #Monocytes 0.87 10x3/uL (0.0-1.1); #Neutrophils 7.05 10x3/uL (1.5-8.4); %Basophils 0.5 % (0.0-2.0); %Eosinophils 1.9 % (0.0-6.0); %Monocytes 9.2 % (0.0-10.0); %Neutrophils 74.6 % (40.0-75.0); Hematocrit 31.4 % (34.9-44.5); Hemoglobin 9.6 g/dL (12.0-15.5); Mean Corpuscular HGB CONC 30.6 g/dL (32.0-36.0); Mean Corpuscular Hemoglobin 28.8 pg (27.0-33.0); Mean Corpuscular Volume 94.3 fL (81.6-98.3); Mean Platelet Volume 8.9 fL (7.4-10.4); Platelet Count 396 10x3/uL (150-450); RBC Distribution Width 17.3 % (11.5-14.5); Red Blood Cell (RBC) Count 3.33 10x6/uL (3.90-5.03); White Blood Cell (WBC) Count 9.5 10x3/uL (3.5-10.5)
[2024-05-12 10:47] LABS: ALT (SGPT) 8 U/L (8-55); AST (SGOT) 19 U/L (5-34); Albumin 3.1 g/dL (3.4-4.8); Alkaline Phosphatase 114 U/L (40-110); Anion Gap 15 mmol/L (10-20); BUN (Urea Nitrogen) 20 mg/dL (9.8-20.1); Bilirubin, Total 0.2 mg/dL (0.2-1.2); Calc. Creatinine Clearance 0 mL/min (70-130); Calcium 9.3 mg/dL (7.8-10.44); Carbon Dioxide 22 mmol/L (23-31); Chloride 107 mmol/L (98-107); Estimated GFR 59; Globulin 3.2 g/dL (2.4-3.5); Glucose 139 mg/dL (83-110); Potassium 3.7 mmol/L (3.5-5.1); Protein, Total 6.3 g/dL (5.8-8.1); Sodium 140 mmol/L (136-145)
[2024-05-12 10:53] LABS: Troponin I 0.143 ng/mL (< 0.028)
[2024-05-12] MEDS ORDERED: Aspirin Chewable 81 MG TAB ONE (11:16)
[2024-05-12] MEDS ORDERED: Acetaminophen 650 MG Suppository PR PRN (13:58)
[2024-05-12] MEDS ORDERED: Acetaminophen 325 MG TAB PO PRN (13:58)
[2024-05-12 14:09] VITALS: BMI 37.1
[2024-05-12] MEDS ORDERED: hydrALAZINE 20 MG/ML VIAL SLOW IVP PRN (14:23)
[2024-05-12] MEDS ORDERED: Ventolin HFA Inhaler 60 PUFF INHALER INH PRN (17:05)
[2024-05-12] MEDS: Ipratropium Bromide 2.5 ml Neb NEB SCH (20:40)
[2024-05-12] MEDS ORDERED: Atorvastatin Calcium 40 MG TAB PO SCH (21:00)
[2024-05-12] MEDS: Flecainide 50 MG TAB PO SCH (21:08)
[2024-05-12] MEDS: Metoprolol Tartrate 25 MG TAB PO SCH (21:09)
[2024-05-12] MEDS: Letrozole 2.5 MG TAB PO SCH (21:09)
[2024-05-12] MEDS: Rivaroxaban 2.5 MG TAB PO SCH (21:09)
[2024-05-12] MEDS: Atorvastatin Calcium 20 MG TAB PO SCH (21:09)
[2024-05-12] MEDS: Montelukast Sodium 10 mg Tablet PO SCH (21:09)
[2024-05-13 04:30] LABS: #Basophils 0.08 10x3/uL (0.0-0.2); #Eosinophils 0.22 10x3/uL (0.0-0.5); #Monocytes 1.28 10x3/uL (0.0-1.1); #Neutrophils 7.59 10x3/uL (1.5-8.4); %Basophils 0.7 % (0.0-2.0); %Lymphocytes 14.4 % (18.0-47.0); %Monocytes 11.9 % (0.0-10.0); %Neutrophils 70.4 % (40.0-75.0); Hematocrit 30.4 % (34.9-44.5); Hemoglobin 9.3 g/dL (12.0-15.5); Mean Corpuscular HGB CONC 30.6 g/dL (32.0-36.0); Mean Corpuscular Hemoglobin 28.7 pg (27.0-33.0); Mean Corpuscular Volume 93.8 fL (81.6-98.3); Platelet Count 386 10x3/uL (150-450); RBC Distribution Width 17.6 % (11.5-14.5); Red Blood Cell (RBC) Count 3.24 10x6/uL (3.90-5.03); White Blood Cell (WBC) Count 10.8 10x3/uL (3.5-10.5)
[2024-05-13 04:41] LABS: Anion Gap 16 mmol/L (10-20); BUN (Urea Nitrogen) 21 mg/dL (9.8-20.1); Calc. Creatinine Clearance 67 mL/min (70-130); Calcium 9.3 mg/dL (7.8-10.44); Carbon Dioxide 24 mmol/L (23-31); Chloride 106 mmol/L (98-107); Estimated GFR 63; Glucose 92 mg/dL (83-110); Potassium 3.6 mmol/L (3.5-5.1); Sodium 142 mmol/L (136-145)
[2024-05-13] MEDS: Levothyroxine Sodium 75 MCG TAB PO SCH (05:31)
[2024-05-13 05:33] LABS: Cholesterol 137 mg/dl (< 200 Desired); HDL Cholesterol 45 mg/dL (>60 Neg Risk); LDL Cholesterol, Calculated 71 mg/dL; Triglycerides 104 mg/dL (Less than 150)
[2024-05-13] MEDS: Pantoprazole DR 40 MG TAB PO SCH (07:56)
[2024-05-13] MEDS: Aspirin 81 mg Enteric Coated Tablet PO SCH (07:57)
[2024-05-13] MEDS: Furosemide 40 MG TAB PO SCH (07:57)
[2024-05-13] MEDS: Potassium Chloride 20 MEQ TAB PO SCH (10:28)
[2024-05-13] MEDS: Spironolactone 25 MG TAB PO SCH (11:01)
[2024-05-13] MEDS: GUAIFENESIN SF SOLN 200 MG/10 ML UDCUP PO SCH ×2 (11:01→11:03)
[2024-05-13] MEDS: ROFLUMILAST PO SCH ×2 (11:24→11:25)
[2024-05-13] MEDS: Non-Formulary Medication 1 EACH (Magnesium [Magnesium] 200 MG Tablet) PO SCH (11:25)
[2024-05-13] MEDS: Mometasone 100 MCG/Formoterol 5 MCG 60 PUFF AEROSOL INH SCH (13:30)
[2024-05-13] MEDS: Rivaroxaban 2.5 MG TAB PO SCH (20:52)
[2024-05-14] MEDS: Spironolactone 25 MG TAB PO SCH (08:32)
[2024-05-14] MEDS ORDERED: ROFLUMILAST PO SCH (09:00)
[2024-05-14 12:35] LABS: Anion Gap 18 mmol/L (10-20); BUN (Urea Nitrogen) 21 mg/dL (9.8-20.1); Calc. Creatinine Clearance 56 mL/min (70-130); Calcium 9.6 mg/dL (7.8-10.44); Carbon Dioxide 22 mmol/L (23-31); Chloride 104 mmol/L (98-107); Estimated GFR 51; Glucose 161 mg/dL (83-110); Potassium 3.6 mmol/L (3.5-5.1); Sodium 140 mmol/L (136-145)
[2024-05-14 15:38] VITALS: BP 131/83; TEMP 98.1
== END 2024-05-14 15:35 | disposition home or self-care (01) | DRG 69 ==
LOC: CSHERS 09:43 → CSHTELE 14:06 → OBSVTOIN 05-14 11:13
PROVIDERS: ADMIT Family Medicine; ATTEND Family Medicine
DX: G45.9 Transient cerebral ischemic attack, unspecified (principal); I50.32 Chronic diastolic (congestive) heart failure; E03.9 Hypothyroidism, unspecified; J44.9 Chronic obstructive pulmonary disease, unspecified; K21.9 Gastro-esophageal reflux disease without esophagitis; Z88.0 Allergy status to penicillin; Z88.8 Allergy status to other drugs, medicaments and biological substances; Z90.89 Acquired absence of other organs; Z90.49 Acquired absence of other specified parts of digestive tract; Z90.710 Acquired absence of both cervix and uterus; Z95.0 Presence of cardiac pacemaker; Z79.01 Long term (current) use of anticoagulants; D50.0 Iron deficiency anemia secondary to blood loss (chronic); I48.0 Paroxysmal atrial fibrillation; E78.2 Mixed hyperlipidemia; I11.0 Hypertensive heart disease with heart failure; E87.6 Hypokalemia
CPT/HCPCS: 0042T; 36415; 36416; 70450; 71045; 72125; 80048; 80053; 80061; 83605; 83735; 84443; 84484; 85025; 93005; 93306; 94640; 94664; J1642; J7644

== ENCOUNTER 2024-05-24 15:36 | Emergency (ER) | payer MEDICARE, OTHER ==
[~2024-05-24 15:36] MED LIST: Iopamidol 370 76% 100 ML VIAL ONE
[2024-05-24 17:10] LABS: Bilirubin Neg (Negative); Blood, Urine Negative (Negative); Clarity Clear (Clear); Glucose, Urine (Dipstick) Normal (Negative); Ketone, Urine Negative (Negative); Leukocyte 100 (Negative); Nitrite Negative (Negative); Protein, Urine (Dipstick) Negative (Neg-Trace); Urobilinogen Normal mg/dL (Less than 2)
[2024-05-24 17:18] LABS: CAUTI Indications for Culture Pelvic or flank pain; RBC/HPF 0-3 HPF (0-3); Squamous Epithelial 0-3 HPF (0-3)
[2024-05-24 17:19] LABS: Bacteria/HPF Rare-Few HPF (None Seen); Urine Culture Reflex No No
[2024-05-24 17:47] LABS: #Basophils 0.04 10x3/uL (0.0-0.2); #Eosinophils 0.03 10x3/uL (0.0-0.5); #Monocytes 0.28 10x3/uL (0.0-1.1); %Basophils 0.3 % (0.0-2.0); %Eosinophils 0.2 % (0.0-6.0); %Lymphocytes 5.2 % (18.0-47.0); %Neutrophils 91.9 % (40.0-75.0); Hematocrit 28.9 % (34.9-44.5); Hemoglobin 9.1 g/dL (12.0-15.5); Mean Corpuscular HGB CONC 31.5 g/dL (32.0-36.0); Mean Corpuscular Hemoglobin 34.1 pg (27.0-33.0); Mean Corpuscular Volume 108.2 fL (81.6-98.3); Platelet Count 349 10x3/uL (150-450); RBC Distribution Width 24.6 % (11.5-14.5); Red Blood Cell (RBC) Count 2.67 10x6/uL (3.90-5.03); White Blood Cell (WBC) Count 13.7 10x3/uL (3.5-10.5)
[2024-05-24 18:02] LABS: ALT (SGPT) 13 U/L (8-55); AST (SGOT) 20 U/L (5-34); Albumin 3.4 g/dL (3.4-4.8); Alkaline Phosphatase 101 U/L (40-110); Anion Gap 17 mmol/L (10-20); BUN (Urea Nitrogen) 28 mg/dL (9.8-20.1); Bilirubin, Total 0.2 mg/dL (0.2-1.2); Calc. Creatinine Clearance 0 mL/min (70-130); Calcium 9.2 mg/dL (7.8-10.44); Carbon Dioxide 24 mmol/L (23-31); Chloride 102 mmol/L (98-107); Estimated GFR 42; Globulin 2.8 g/dL (2.4-3.5); Glucose 131 mg/dL (83-110); Lipase 36 U/L (8-78); Potassium 4.6 mmol/L (3.5-5.1); Protein, Total 6.2 g/dL (5.8-8.1); Sodium 138 mmol/L (136-145)
[2024-05-24 18:08] LABS: Troponin I Less than 0.010 ng/mL (< 0.028)
[2024-05-24 18:43] LABS: Anisocytosis MODERATE=16-30 cells (100X) (0-5/hpf); Macrocytosis SLIGHT = 6-15 cells (100X) (0-5/hpf); Platelet Adequacy Comment Appears Adequate; Polychromasia MODERATE = 3-4 cells (100X) (0-2/hpf)
== END 2024-05-24 21:30 | disposition home or self-care (01) ==
LOC: CSHERS 15:36
DX: K59.00 Constipation, unspecified (principal); I10 Essential (primary) hypertension
CPT/HCPCS: 36415; 71045; 74177; 80053; 81001; 83605; 83690; 83880; 84484; 85025; 87040; 87086; 87428; 93005; 96360; Q9967

== ENCOUNTER 2024-07-03 07:02 | Emergency (ER) | payer MEDICARE, OTHER ==
[2024-07-03] MEDS ORDERED: Ipratropium/Albuterol 3 ML NEB ONE (07:48)
[2024-07-03 08:08] LABS: #Basophils 0.05 10x3/uL (0.0-0.2); #Eosinophils 0.02 10x3/uL (0.0-0.5); #Monocytes 1.37 10x3/uL (0.0-1.1); #Neutrophils 13.98 10x3/uL (1.5-8.4); %Basophils 0.3 % (0.0-2.0); %Eosinophils 0.1 % (0.0-6.0); %Lymphocytes 7.5 % (18.0-47.0); %Monocytes 8.1 % (0.0-10.0); %Neutrophils 82.8 % (40.0-75.0); Hematocrit 28.8 % (34.9-44.5); Hemoglobin 8.8 g/dL (12.0-15.5); Mean Corpuscular HGB CONC 30.6 g/dL (32.0-36.0); Mean Corpuscular Hemoglobin 29.2 pg (27.0-33.0); Mean Corpuscular Volume 95.7 fL (81.6-98.3); Mean Platelet Volume 8.6 fL (7.4-10.4); Platelet Count 425 10x3/uL (150-450); RBC Distribution Width 20.2 % (11.5-14.5); Red Blood Cell (RBC) Count 3.01 10x6/uL (3.90-5.03); White Blood Cell (WBC) Count 16.9 10x3/uL (3.5-10.5)
[2024-07-03 08:41] LABS: ALT (SGPT) 10 U/L (8-55); AST (SGOT) 20 U/L (5-34); Alkaline Phosphatase 109 U/L (40-110); Anion Gap 18 mmol/L (10-20); BUN (Urea Nitrogen) 23 mg/dL (9.8-20.1); Bilirubin, Total 0.2 mg/dL (0.2-1.2); Calc. Creatinine Clearance 0 mL/min (70-130); Calcium 9.6 mg/dL (7.8-10.44); Carbon Dioxide 21 mmol/L (23-31); Chloride 105 mmol/L (98-107); Estimated GFR 44; Globulin 3.6 g/dL (2.4-3.5); Glucose 91 mg/dL (83-110); Potassium 3.9 mmol/L (3.5-5.1); Protein, Total 6.6 g/dL (5.8-8.1); Sodium 140 mmol/L (136-145)
== END 2024-07-03 09:32 | disposition home or self-care (01) ==
LOC: CSHERS 07:02
DX: J44.1 Chronic obstructive pulmonary disease with (acute) exacerbation (principal); I10 Essential (primary) hypertension
CPT/HCPCS: 36415; 71045; 80053; 85025; 93005; 93010; 94640; 94760; J7620